=== PATIENT | male | born 1955 | race Caucasian/White ===

== ENCOUNTER → 2020-05-21 11:31 | Outpatient (CLI) | payer MEDICARE, SELFPAY ==
--- NOTE | ~2020-05-21 | CT_ITS ---
EXAMINATION: CT ankle RT wo con DATE: 05/21/2020 11:53 INDICATION: Closed pilon fracture of distal tibia. TECHNIQUE: Computed tomography (CT) of the right ankle was performed without intravenous contrast. Au tomated exposure control and iterative reconstruction technique were employed. The dose-length produc t was 200.05 mGy-cm. COMPARISON: None FINDINGS: There is a comminuted fracture of the distal tibia with extension of fracture lines to the tibial plafond. There is incongruence of the distal articular surface of the tibia with up to 2 mm ar ticular surface depression. There is internal fixation of distal tibia with 2 screws. There are osteo chondral lesions of the medial and lateral talar dome. There is moderate nonuniform joint space narro wing of the ankle joint with osteophytes. There is heterotopic ossification distal to medial and late ral malleoli. There is mild osteoarthritis of subtalar joint and many of the midfoot joints. There ar e enthesophytes at the posterior and plantar aspects of calcaneal tuberosity. IMPRESSION: 1. Comminuted fracture of distal tibia with internal fixation. 2. 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 Reviewed, dictated and finalized at location A. L PATTERNMAKER APPRENTICE
== END ==
DX: S82.874D Nondisplaced pilon fracture of right tibia, subsequent encounter for closed fracture with routine healing (principal); X58.XXXD Exposure to other specified factors, subsequent encounter; M19.071 Primary osteoarthritis, right ankle and foot
CPT/HCPCS: 73700

== ENCOUNTER → 2020-09-14 09:00 | Outpatient (CLI) | payer MEDICARE, SELFPAY ==
--- NOTE | ~2020-09-14 | CT_ITS ---
EXAMINATION: CT diagnostic chest wo con EXAM DATE: 09/14/2020 09:15 INDICATION: R91.1 - Solitary pulmonary nodule. Asthma. TECHNIQUE: Spiral CT of the chest without contrast. Axial, coronal and sagittal images of the chest were reviewed. Coronal maximum intensity pixel images of chest reviewed. The dose-length product ( DLP) for this examination was 203.03 mGy-cm. The exposure was tailored according to patient size (au to mA exposure control), and iterative reconstruction (ASIR) was used as additional dose reduction te chnique. There is no prior study for comparison. FINDINGS: There are several pulmonary nodules including left lower lobe nodule located just above th e diaphragm measuring 1.5 cm, with spiculations. There is a satellite pleural-based 8 mm nodule near this. Also small cluster of right lower lobe nodules, largest measuring 1.3 cm. These are new compare d to 2016. Multiplicity, clustered appearance suggests they could be postinfectious but a PET/CT at t his time, or a follow-up [address] is recommended. Largest nodules are abutting the diaphragm which would make percutaneous sampling challenging. There is mild emphysema. Lingular subsegmental atelectasis. There are no pleural or pericardial effus ions. Tracheobronchial tree is patent. There is no mediastinal, hilar or axillary lymphadenopathy . There is no pneumothorax. Heart normal in size. There is moderate coronary arterial calcifica tion, arterial sclerosis. Upper abdomen is unremarkable. There is thoracic spondylosis without ost eoblastic or osteolytic lesions identified. IMPRESSION: 1. Cluster of nodules in each lower lobe, largest discrete nodule just above left hemidiaphragm 1.5 cm with spiculations. Could be postinfectious but PET CT recommended. 2. Mild emphysema. Reviewed, dictated and finalized at location B. IMPRESSION: 1. Cluster of nodules in each lower lobe, largest discrete nodule just above l eft hemidiaphragm 1.5 cm with spiculations. Could be postinfectious but PET CT recommended. 2. Mild emphysema.
== END ==
PROVIDERS: PCP Physician Assistant; Visit Provider Physician Assistant
DX: R91.1 Solitary pulmonary nodule (principal); J43.9 Emphysema, unspecified; R91.8 Other nonspecific abnormal finding of lung field
CPT/HCPCS: 71250

== ENCOUNTER 2020-09-30 07:51 | Outpatient (CLI) | payer MEDICARE, SELFPAY ==
--- NOTE | ~2020-09-30 | PE_ITS ---
EXAMINATION: PET skull to mid thigh DATE: 09/30/2020 11:51 INDICATION: Solitary pulmonary nodule. TECHNIQUE: Blood glucose level was 107 mg/dL. 9.441 mCi of 18-fluorodeoxyglucose (18-FDG) was adminis tered i.v. Low dose computed tomography (CT) images were acquired from the base of the brain to the p roximal thighs for attenuation correction and anatomic localization. Positron emission tomography (PE T) images were acquired in the same distribution beginning 72 minutes after injection. Images includi ng fused PET/CT images were reconstructed in axial, coronal, and sagittal planes. Automated exposure control technique was employed. The dose-length product was 953.49mGy-cm. COMPARISON: CT dated 09/14/2020 FINDINGS: Head/neck: There is symmetric increased activity in the oral cavity, palatine tonsils, parotid glands, larynge al muscles and ocular muscles without CT correlate, likely physiologic. No pathologically enlarged ce rvical lymphadenopathy or suspicious foci of increased FDG uptake in the visualized head or neck. Chest: There is mild increased FDG uptake with maximal SUV of 3.2 associated with the 13 mm left lower lobe nodule along the posterior dome of the diaphragm. No evident FDG uptake associated with a nearby 6 mm nodule posteriorly at the left lower lobe. Minimal increased uptake with maximal SUV of 2.0 associat ed with a 1.2 cm right lower lobe nodule at the posterolateral sulcus. No evident FDG uptake associat ed with the additional smaller nodules clustered in the slightly more cephalad posterolateral right l ower lobe. No increased FDG uptake associated with a linear band of discoid atelectasis/scarring at t he lingula. No pleural effusion. Heart size is normal. No pericardial effusion. Thoracic aorta is nor mal in caliber. No pathologically enlarged thoracic lymphadenopathy. Abdomen/pelvis/proximal thighs: Physiologic renal accumulation and excretion of FDG activity in the kidneys and bladder. Photopenic d efect at the medial lower pole of the left kidney corresponding to a 3.6 cm low-attenuation renal cys t with peripheral rim calcification. Normal degree and heterogenous pattern of increased uptake throu ghout the liver without radiologic correlate or dominant FDG avid lesion. The gallbladder, pancreas, spleen and bilateral adrenal glands are normal. Mild scattered colonic diverticulosis without adjacen t inflammatory change to suggest diverticulitis. Mild uptake scattered throughout the bowels without radiologic correlate, also likely physiologic. Normal appendix. Small bilateral fat-containing inguin al hernias. No other abnormal foci of increased FDG uptake or pathologically enlarged lymphadenopathy in the abdomen, pelvis or proximal thighs. Musculoskeletal: No suspicious lytic, blastic or FDG avid bone lesions. IMPRESSION: 1. Mild FDG uptake associated with a 1.3 cm left lower lobe nodule and minimal FDG uptake is fissure with a 1.2 cm right lower lobe nodule. No uptake is fissure with a few additional smaller nodules adj acent to both of these nodules in the lower lobes which along with the relatively low FDG activity w ould favor an infectious over a malignant etiology. The location along the diaphragm of the larger no dules with discernible FDG activity in both the left and right lower lobes would render percutaneous biopsy challenging and would consider 3 month follow-up chest CT. Reviewed, dictated and finalized at location A. IMPRESSION: 1. Mild FDG uptake associated with a 1.3 cm left lower lobe nodule and minimal FDG uptake is fissure with a 1.2 cm right lower lobe nodule. No uptake is fissu re with a few additional smaller nodules adjacent to both of these nodules in the lower lobes which along with the relatively low FDG
[2020-09-30 08:15] LABS: Glucose Point of Care 107 mg/dl (65-105)
== END 2020-09-30 07:52 | disposition home or self-care (01) ==
PROVIDERS: PCP Physician Assistant; Visit Provider Physician Assistant
DX: R91.1 Solitary pulmonary nodule (principal); R91.8 Other nonspecific abnormal finding of lung field
CPT/HCPCS: 78815; A9552

== ENCOUNTER → 2021-01-10 10:29 | Outpatient (CLI) | payer MEDICARE, SELFPAY ==
--- NOTE | ~2021-01-10 | CT_ITS ---
EXAMINATION: CT chest high resolution [facility] EXAM DATE: 01/10/2021 10:43 INDICATION: R91.1 - Solitary pulmonary nodule. TECHNIQUE: Spiral CT of the chest without contrast. HRCT. Axial, coronal and sagittal images of the chest were reviewed. Coronal maximum intensity pixel images of chest reviewed. The dose-length prod uct (DLP) for this examination was 528.84 mGy-cm. The exposure was tailored according to patient siz e (auto mA exposure control), and iterative reconstruction (ASIR) was used as additional dose reducti on technique. Comparison is made to prior examination from 09/14/2020. FINDINGS: There has been interval decrease in size of the previously imaged nodules, largest in the left lower lobe still has some faint spiculations, measures about 1.0 cm versus 1.5 cm on prior study . Satellite nodules adjacent to these larger opacities also decreased in size. This favors postinfect ious etiology, but a six-month follow-up chest CT is recommended. There is some lingular scarring unc hanged. Mild to moderate emphysema and hyperinflation with narrow cardiac silhouette. No intralobular septal thickening on the HRCT. There are no pleural or pericardial effusions. Tracheobronchial rafia e is patent. There is no mediastinal, hilar or axillary lymphadenopathy. There is no pneumothorax . Heart normal in size. There is moderate coronary arterial calcification, arterial sclerosis. S everal punctate pancreatic tail calcifications. There is thoracic spondylosis without osteoblastic o r osteolytic lesions identified. IMPRESSION: 1. Decrease in size of lower lobe nodules most likely postinfectious residua; six-month follow-up est CT is recommended. 2. Mild to moderate emphysema and hyperinflation. Reviewed, dictated and finalized at location A. IMPRESSION: 1. Decrease in size of lower lobe nodules most likely postinfectious residua; six-month follow-up chest CT is recommended. 2. Mild to moderate emphysema and hyperinflation.
== END ==
PROVIDERS: PCP Physician Assistant; Visit Provider Physician Assistant
DX: R91.1 Solitary pulmonary nodule (principal); J43.9 Emphysema, unspecified; R91.8 Other nonspecific abnormal finding of lung field
CPT/HCPCS: 71250

== ENCOUNTER 2021-04-05 15:35 | Observation (INO) | payer MEDICARE, SELFPAY ==
[2021-04-05] VITALS (19 sets, daily range): BP systolic 151–192; BP diastolic 79–104; PULSE 89–102; RESP 16–28; TEMP 36.8–37.7; O2SAT 93–97; BMI 30.2
--- NOTE | ~2021-04-05 | XR_ITS ---
EXAMINATION: XR chest 1V portable DATE: 04/05/2021 16:45 INDICATION: Shortness of breath and cough. Fever. TECHNIQUE: A single frontal view of the chest was obtained. COMPARISON: Chest 2 views 09/25/2013, chest CT 01/10/2021 FINDINGS: There are patchy airspace opacities in the mid and lower lung zones. There are lucencies in the lungs, consistent with emphysema. No pleural effusion or pneumothorax. The heart size is normal. IMPRESSION: 1. Patchy airspace opacities in the mid and lower lung zones, consistent with pneumonia. 2. Emphysema. Reviewed, dictated and finalized at location A. ATIONAL THERAPIST IMPRESSION: 1. Patchy airspace opacities in the mid and lower lung zones, consistent with p neumonia. 2. Emphysema.
--- NOTE | 2021-04-05 15:51 | ECG_ITS ---
Measurements Intervals [place] Rate: 94 P: 80 CO: 162 QRS: 76 QRSD: 101 T: 71 QT: 359 QTc: 449 Interpretive Statements SINUS RHYTHM BORDERLINE ST ABNORMALITY- ANT/INF LEADS BORDERLINE ECG Electronically Signed On 04-05-2021 16:22:45 DAG SPRAYER by Maik Ortiz D.O.
[2021-04-05 16:17] LABS: Basophils Percent Auto 0.3 % (0.2-1.2); Eosinophils Percent Auto 0.1 % (0-4.4); Hematocrit 41.5 % (42.0-52.0); Immature Granulocyte Absolute 0.06 K/mm3 (0.00-0.031); Immature Granulocyte Percent A 0.5 % (0-0.5); Lymphocytes Percent Auto 7.8 % (18.3-44.2); Mean Corpuscular HGB Conc 33.7 g/dl (32-36); Mean Corpuscular Hemoglobin 30.8 pg (26-34); Mean Corpuscular Volume 91.4 fl (80-100); Mean Platelet Volume 10.9 fl (7.4-10.4); Monocytes Absolute Auto 1.5 K/mm3 (0.1-0.6); Monocytes Percent Auto 13.1 % (2.6-8.5); Neutrophils Absolute Auto 9.1 K/mm3 (1.3-6.7); Neutrophils Percent Auto 78.2 % (45.5-73.1); Platelet Count Result 231 k/mm3 (150-375); Red Blood Count 4.54 M/mm3 (4.6-6.20); Red Cell Distribution Width 12.6 % (11.5-14.5); White Blood Count 11.6 K/mm3 (4.5-10.0)
[2021-04-05 16:26] LABS: Alanine Aminotransferase 71 U/L (4-50); Albumin Level 4.2 g/dL (3.5-5.1); Alkaline Phosphatase 156 U/L (38-126); Anion Gap 8 mmol/L (8-16); Aspartate Amino Transferase 112 U/L (17-59); Bilirubin,Total 1.1 mg/dL (0.2-1.3); Blood Urea Nitrogen 10 mg/dL (9-20); Calcium 9.3 mg/dL (8.4-10.2); Carbon Dioxide 32 mmol/L (22-30); Chloride 98 mmol/L (98-107); Estimated CRCL calculation 91 ml/min; Estimated Glomerular Filt Rate > 60; Glucose 102 mg/dL (65-110); Potassium 3.6 mmol/L (3.4-5.0); Sodium 138 mmol/L (137-145)
--- NOTE | 2021-04-05 16:35 | ED.SOB ---
HPI - SOB/Dyspnea General Chief Complaint: Shortness of Breath/Dyspnea Stated Complaint: productive cough Time Seen by Provider: 04/05/21 16:35 Source: patient Mode of arrival: ambulatory Limitations: no limitations History of Present Illness HPI Narrative: Patient 65 years old white male presented to the ED with productive cough of colored sputum for the last 7 days. Last Covid vaccine November 2020. Patient denies exposure to anybody known having Covid infection. Patient doesn't smoke or drink. History of COPD. Related Data Allergies Allergy/AdvReac Type Severity Reaction Status Date / Time No Known Allergies Allergy Unknown Unverified 03/02/21 10:18 Review of Systems Review of Systems: CONSTITUTIONAL: Denies fever, chills, or sweats. EYES: Denies visual changes, redness, or discharge. ENT: Denies rhinorrhea, congestion, sore throat, or otalgia. CARDIOVASCULAR: Denies chest pain, palpitations, or edema. RESPIRATORY: Been coughing with shortness of breath on exertion GASTROINTESTINAL: Denies abdominal pain, nausea, vomiting, or diarrhea. GENITOURINARY: Denies dysuria or hematuria. SKIN: Denies rash or itching. MUSCULOSKELETAL: Denies back pain, joint pain, or myalgia. NEUROLOGIC: Denies headache, numbness, or weakness. PSYCHIATRIC: Denies anxiety or depression. PMFSH Past Medical History Medical History Hearing loss History of hemorrhoids Shortness of breath Visual loss Surgical History Surgical History History of ankle surgery Family History Family History Father , of natural causes No problems noted. Mother Cancer Sibling , Brother in car accident No problems noted. Sibling Alcohol abuse Social History Social History Smoking status: Never smoker Alcohol intake: current Substance use: never Exam Narrative: General appearance: Well-developed, well-nourished Skin: Normal color Head: Normocephalic, nontraumatic Eyes: Clear conjunctiva ENT: Oropharynx normal, ears normal, nose normal Neck: Supple, nontender Chest and respiratory: Airway patent, no respiratory distress, no accessory muscle use, diminishment of air entry bilaterally, basal rales bilaterally Heart: Regular rate/rhythm Abdomen: Soft, nontender, no organomegaly, quiet bowel sounds Vascular: Normal peripheral pulses, normal capillary refill. Musculoskeletal: Normal range of motion, nontender back Neurologic: Alert and oriented ?3, SALMON TROLL FISHER is normal as tested, no gross motor deficit Course Course Emergency Course: Stable Vital Signs Vital signs: Vital Signs Temperature 37.7 C H 04/05/21 15:47 Pulse Rate 95 04/05/21 15:47 Respiratory Rate 24 H 04/05/21 15:47 Blood Pressure 169/104 H 04/05/21 15:47 Pulse Oximetry 93 04/05/21 15:47 Temperature 37.2 C 04/05/21 18:16 Pulse Rate 90 04/05/21 18:36 Respiratory Rate 28 H 04/05/21 18:16 Blood Pressure 174/87 H 04/05/21 18:16 Pulse Oximetry 96 04/05/21 18:36 MDM - SOB/Dyspnea MDM Narrative Medical decision making narrative: Patient presents with productive cough and shortness of breath for 7 days. Differential Diagnosis Differential diagnosis: Likely acute exacerbation of chronic obstructive airways disease, congestive heart failure and community acquired pneumonia Lab Data Result diagrams: 04/05/21 16:03 04/05/21 16:03 Labs: Lab Results 04/05/21 04/05/21 04/05/21 Range/Units 1
[2021-04-05 16:56] LABS: Alveolar/Arterial O2 Gradient 42.8 mmHg; Base Excess ABG 2.9 mEq/l (+/-2.0); Device ROOM AIR; Fractional Inspired Oxygen 21 %; HCO3 ABG 25.8 mEq/l (22.0-26.0); Modified Allen's Test Pass; Oxygen Content ABG 18.3 %vol (16.0-22.0); Oxygen Saturation ABG 94.5 % (95.0-100.0); Oxyhemoglobin 93.4 % THb (90.0-100.0); PCO2 ABG 34.6 mmHg (35.0-45.0); PO2 ABG 65.5 mmHg (80.0-100.0); PO2 FiO2 Ratio Arterial Blood 3.12 %; Site Drawn RIGHT RADIAL; Total Hemoglobin 13.9 g/dL (12.0-18.0); pH ABG 7.491 (7.350-7.450)
[2021-04-05 17:37] LABS: INR 1.2; Prothrombin Time 15.4 Seconds (11.1-14.7)
[2021-04-05 17:38] LABS: Partial Thromboplastin Time 38.7 SECONDS (22.3-36.8)
[2021-04-05 17:43] LABS: CRP 7.3 mg/dL (<1.0)
[2021-04-05] MEDS: IPRATROPIUM BR 0.02% INH SOLN 0.5 MG/2.5 ML VIAL INHALATION ×2 (17:48→20:50)
[2021-04-05] MEDS: ALBUTEROL SULFATE NEB 2.5 MG/0.5 ML INH 5 MG INHALATION ×2 (17:48→20:49)
[2021-04-05 17:53] LABS: NT Pro B Type Natriuretic Pept 572 pg/mL (5-100); Troponin I < 0.012 ng/mL (0.000-0.034)
[2021-04-05] MEDS: predniSONE 20 MG TABLET 40 MG PO (17:54)
[2021-04-05 18:02] LABS: Lactic Acid Reflex 2.7 mmol/L (0.7-2.1)
[2021-04-05 18:12] LABS: Add Urine Microscopic? YES; Appearance Urine Clear (Clear); Bilirubin Urine Negative (Negative); Blood Urine Negative (Negative); Color Urine Yellow (Yellow); Glucose Urine UA Negative (Negative); Ketones Urine Trace mg/dL (Negative); Leukocyte Esterase Ur Negative LEU/UL (Negative); Mucus Urine Few /lpf; Nitrate Urine Negative (Negative); Protein Urine 1+ mg/dL (Negative); RBC Urine 0-2 /hpf (0-2); Specific Grav Ur 1.017 (1.001-1.035); WBC Urine 0-3 /hpf
[2021-04-05 18:23] LABS: SARS-CoV-2 RNA PCR Negative
--- NOTE | 2021-04-05 19:15 | PC.NURSE ---
patients catheter scheduled to be changed next week. 16fr kay catheter removed. well tolerated. 14fr coude placed under sterile technique, well tolerated. 16fr kay unable to be placed.
[2021-04-05 20:22] LABS: Reflex Lactic Acid Yes or No Add Lactic
--- NOTE | 2021-04-05 22:58 | ADMGEN ---
This patient, Matthew Kimbrough, was admitted to [facility] Surg Room 322-01. Patient/family oriented to hospital policies and general routines including ID bracelet, bed and alarms, visiting hours, pain management, procedures, bathroom and other care routines, personal items, smoking policy, room service/diet, and visiting hours. Information on how to activate the Rapid Response Team has been discussed. Patient/Family are encouraged to report perceived risks to care and to ask questions if they do not understand what they are told or what they should do.
[2021-04-05 23:50] LABS: Lactic Acid 2.5 mmol/L (0.7-2.1)
[2021-04-06] VITALS (12 sets, daily range): BP systolic 143–175; BP diastolic 75–91; PULSE 80–97; RESP 14–20; TEMP 36.7–36.9; O2SAT 93–96
[2021-04-06] MEDS: CALCIUM CARBONATE (TUMS) 500 MG (200 MG ELEMENTAL) PO (00:13)
[2021-04-06] MEDS: lisinopriL 10 MG TABLET PO ×2 (00:13→09:26)
--- NOTE | 2021-04-06 02:04 | PM.IMHP ---
H&P: HPI History of Present Illness Date/Time: 04/06/21 02:04 Chief Complaint: Cough shortness of breath Narrative: Patient 65 years old white male who presented to the ED with productive cough of yellow thick colored sputum for the last 7 days. Last Covid vaccine November 2020. Patient denies exposure to anybody known having Covid infection. He also did COVID testing at home and was negative twice. COVID testing was done again in the ER which was negative as well. He reports thick yellow sputum since past few days. His is also sick with some cough but not feeling that bad as he is. Denies any fever chills. Patient doesn't smoke or drink. History of COPD which he reports due to occupational exposure to some chemicals. He has 3 year history of smoking back when he was 9 years old. Review of Systems Review of Systems: CONSTITUTIONAL: Denies fever, chills, or sweats. EYES: Denies visual changes, redness, or discharge. ENT: Denies rhinorrhea, congestion, sore throat, or otalgia. CARDIOVASCULAR: Denies chest pain, palpitations, or edema. RESPIRATORY: Reports coughing with shortness of breath on exertion GASTROINTESTINAL: Denies abdominal pain, nausea, vomiting, or diarrhea. GENITOURINARY: Denies dysuria or hematuria. SKIN: Denies rash or itching. MUSCULOSKELETAL: Denies back pain, joint pain, or myalgia. NEUROLOGIC: Denies headache, numbness, or weakness. PSYCHIATRIC: Denies anxiety or depression. [facility] Past Medical History Medical History Hearing loss History of hemorrhoids Shortness of breath Visual loss Surgical History Surgical History History of ankle surgery Family History Family History Father , of natural causes No problems noted. Mother Cancer Sibling , Brother in car accident No problems noted. Sibling Alcohol abuse Social History Social History Smoking status: Former smoker Tobacco type: cigarettes Alcohol intake: never Substance use: never Spiritual care concerns: No Meds Home Medications and Allergies Home Medications Medication Instructions Recorded Confirmed Type albuterol sulfate 90 mcg/actuation 2 puff INHALATION Q4-6H PRN #25.5 g 05/10/20 04/05/21 Rx aerosol inhaler budesonide-formoterol HFA 160 2 puff INHALATION Q12H #30.6 g 05/10/20 04/05/21 Rx mcg-4.5 mcg/actuation aerosol inhaler lisinopril 10 mg tablet 10 mg PO DAILY #90 tablet 01/21/21 04/05/21 Rx montelukast 10 mg tablet 10 mg PO DAILY #90 tablet 01/21/21 04/05/21 Rx ipratropium 0.5 mg-albuterol 3 mg 3 ml INHALATION Q4-6H PRN #810 ml 03/09/21 04/05/21 Rx (2.5 mg base)/3 mL nebulization soln Allergies Allergy/AdvReac Type Severity Reaction Status Date / Time No Known Allergies Allergy Unknown Unverified 03/02/21 10:18 Vital Signs Vital Signs - 24 hr 04/05/21 15:47 04/05/21 16:34 04/05/21 16:37 Temperature 99.8 F H Pulse Rate 95 94 96 Respiratory Rate 24 H 23 H 23 H Blood Pressure 169/104 H 183/89 H Pulse Oximetry 93 95 95 04/05/21 16:45 04/05/21 16:46 04/05/21 17:00 Temperature Pulse Rate 89 91 100 Respiratory Rate 19 18 25 H Blood Pressure 168/93 H Pulse Oximetry 96 93 97 04/05/21 17:01 04/05/21 17:15 04/05/21 17:16 Temperature Pulse Rate 97 95 92 Respiratory Rate 25 H 22 H 16 Blood Pressure 183/102 H 192/85 H Pulse Oximetry 95 04/05/21 17:30 04/05/21 17:31 04/05/21 17:47 Temperature Pulse Rate 93 93 94 Respiratory Rate 16 20 23 H Blood Pressure 176/92 H 188/98 H Pulse Oximetry 95 04/05/21 17:49 04/05/21 18:00 04/05/21 18:16 Temperature 98.9 F Pulse Rate 95 94 100 Respiratory Rate 21 H 26 H 28 H Blood Pressure 174/87 H Pulse Oximetry 97 93 04/05/21 18:
[2021-04-06] MEDS: SODIUM CHLORIDE 0.9% IV 1,000 ML 75 ML IV CONT (03:07)
[2021-04-06] MEDS: IPRATROPIUM BR 0.02% INH SOLN 0.5 MG/2.5 ML VIAL INHALATION ×4 (03:10→21:27)
[2021-04-06] MEDS: ALBUTEROL SULFATE NEB 2.5 MG/0.5 ML INH 5 MG INHALATION ×4 (03:10→21:27)
[2021-04-06] MEDS: ENOXAPARIN 40 MG/0.4 ML SYRINGE SUB-Q (09:25)
[2021-04-06] MEDS: methylPREDNISolone SOD SUCC 40 MG VIAL IV PUSH ×2 (09:25→17:44)
[2021-04-06] MEDS: MONTELUKAST SODIUM 10 MG TABLET PO (09:25)
[2021-04-06] MEDS: FLUTICASONE/SALMETEROL 115-21 MCG INHALER 1 PUFF 2 PUFF INHALATION ×2 (09:27→21:27)
--- NOTE | 2021-04-06 10:01 | PCCCNOTE ---
On 04/06/21, the student, [Shivani Price], provided care and completed [facility] on [facility]. I have reviewed the student's documentation and agree with the findings.
[2021-04-06 10:25] LABS: Basophils Percent Auto 0.3 % (0.2-1.2); Hematocrit 38.3 % (42.0-52.0); Hemoglobin 13.1 g/dL (14.0-18.0); Immature Granulocyte Absolute 0.16 K/mm3 (0.00-0.031); Immature Granulocyte Percent A 1.5 % (0-0.5); Lymphocytes Absolute Auto 1.94 K/mm3 (0.9-3.2); Lymphocytes Percent Auto 18.6 % (18.3-44.2); Mean Corpuscular HGB Conc 34.2 g/dl (32-36); Mean Corpuscular Hemoglobin 30.6 pg (26-34); Mean Corpuscular Volume 89.5 fl (80-100); Mean Platelet Volume 11.4 fl (7.4-10.4); Monocytes Absolute Auto 1.5 K/mm3 (0.1-0.6); Neutrophils Absolute Auto 6.9 K/mm3 (1.3-6.7); Neutrophils Percent Auto 65.6 % (45.5-73.1); Platelet Count Result 227 k/mm3 (150-375); Red Blood Count 4.28 M/mm3 (4.6-6.20); Red Cell Distribution Width 12.6 % (11.5-14.5); White Blood Count 10.4 K/mm3 (4.5-10.0)
[2021-04-06 10:49] LABS: Alanine Aminotransferase 61 U/L (4-50); Albumin Level 3.5 g/dL (3.5-5.1); Alkaline Phosphatase 124 U/L (38-126); Aspartate Amino Transferase 77 U/L (17-59); Bilirubin,Total 0.7 mg/dL (0.2-1.3)
--- NOTE | 2021-04-06 11:37 | P.PNIM_ITS ---
Progress Note: A&P Assessment and Plan (1) Acute exacerbation of chronic obstructive pulmonary disease: Code(s): J44.1 - Chronic obstructive pulmonary disease with (acute) exacerbation Status: Acute Assessment and Plan: Presented with diffuse wheezing and dyspnea * Continue IV Solu-Medrol 40 mg b.i.d. * Continue albuterol and ipratropium nebs q6h * Advair inhaler * Supportive care. Cornet valve and incentive spirometry (2) Pneumonia: Qualifiers: Laterality: unspecified laterality Lung location: unspecified part of lung Pneumonia type: due to unspecified organism Qualified Code(s): J18.9 - Pneumonia, unspecified organism Code(s): J18.9 - Pneumonia, unspecified organism Status: Acute Assessment and Plan: CXR showed patchy airspace opacities in the mid and lower lung zones consistent with pneumonia * COVID-19 negative * Influenza pending * Legionella pneumococcal urinary antigens pending * Continue IV Levaquin * Sputum culture and blood cultures pending * Supportive care * Mild leukocytosis is improving * Maintaining adequate oxygen saturations on room air. No supplemental O2 requirement (3) Elevated liver enzymes: Code(s): R74.8 - Abnormal levels of other serum enzymes Status: Acute Assessment and Plan: Trending down * May be related to acute infection * Will check hepatitis panel * Consider right upper quadrant ultrasound if no further improvement * Continue to monitor LFTs (4) Cough: Code(s): R05.9 - Cough, unspecified Status: Acute Assessment and Plan: Secondary to COPD exacerbation and pneumonia as above (5) Hypertension: Qualifiers: Hypertension type: primary hypertension Qualified Code(s): I10 - Essential (primary) hypertension Code(s): I10 - Essential (primary) hypertension Status: Acute Assessment and Plan: Blood pressure reviewed and has been elevated above target in the 180 systolic. * Seems to be improving. Last BP 154/75 * Continue home lisinopril * Will discontinue IV fluids. Patient is tolerating oral intake * P.r.n. hydralazine * Monitor blood pressure trends and adjust medication regimen as needed. (6) Lactic acidosis: Code(s): E87.2 - Acidosis Status: Acute Assessment and Plan: Lactic acid elevated up to 2.7 on presentation * Improved with hydration * May be related to acute infection * Blood cultures pending * Lactic has normalized Subjective Date/time seen: 04/06/21 11:37 Interval history: Date of service: 04/06/2021 Matthew Kimbrough is a 65-year-old male with a history of COPD, hearing loss, hype rtension, hyperlipidemia who is seen in follow-up for COPD exacerbation. He feels a lot better today. He had been feeling poorly at home for about 2 weeks and is already having significant improvement. He does endorse productive cough with yellow sputum. His shortness of breath is improving he feels he is able to take deeper breaths. He denies any wheezing. Has not been out of bed yet today and unable to indicate RUIZ. He denies orthopnea. He does endorse abdominal soreness secondary to coughing. Denies fever or chills. His appetite is good. Reports he has been drinking plenty of water. Denies nausea or vomiting. No urinary symptoms. Review of Systems Review of Systems: All systems reviewed & are unremarkable except as noted in HPI and below Exam Narrative: Mr. Kimbrough is a well-nourish
--- NOTE | 2021-04-06 11:37 | PM.IMPN ---
Progress Note: A&P Assessment and Plan (1) Acute exacerbation of chronic obstructive pulmonary disease: Code(s): J44.1 - Chronic obstructive pulmonary disease with (acute) exacerbation Status: Acute Assessment and Plan: Presented with diffuse wheezing and dyspnea Continue IV Solu-Medrol 40 mg b.i.d. Continue albuterol and ipratropium nebs q6h Advair inhaler Supportive care. Cornet valve and incentive spirometry (2) Pneumonia: Qualifiers: Laterality: unspecified laterality Lung location: unspecified part of lung Pneumonia type: due to unspecified organism Qualified Code(s): J18.9 - Pneumonia, unspecified organism Code(s): J18.9 - Pneumonia, unspecified organism Status: Acute Assessment and Plan: CXR showed patchy airspace opacities in the mid and lower lung zones consistent with pneumonia COVID-19 negative Influenza pending Legionella pneumococcal urinary antigens pending Continue IV Levaquin Sputum culture and blood cultures pending Supportive care Mild leukocytosis is improving Maintaining adequate oxygen saturations on room air. No supplemental O2 requirement (3) Elevated liver enzymes: Code(s): R74.8 - Abnormal levels of other serum enzymes Status: Acute Assessment and Plan: Trending down May be related to acute infection Will check hepatitis panel Consider right upper quadrant ultrasound if no further improvement Continue to monitor LFTs (4) Cough: Code(s): R05.9 - Cough, unspecified Status: Acute Assessment and Plan: Secondary to COPD exacerbation and pneumonia as above (5) Hypertension: Qualifiers: Hypertension type: primary hypertension Qualified Code(s): I10 - Essential (primary) hypertension Code(s): I10 - Essential (primary) hypertension Status: Acute Assessment and Plan: Blood pressure reviewed and has been elevated above target in the 180 systolic. Seems to be improving. Last BP 154/75 Continue home lisinopril Will discontinue IV fluids. Patient is tolerating oral intake P.r.n. hydralazine Monitor blood pressure trends and adjust medication regimen as needed. (6) Lactic acidosis: Code(s): E87.2 - Acidosis Status: Acute Assessment and Plan: Lactic acid elevated up to 2.7 on presentation Improved with hydration May be related to acute infection Blood cultures pending Lactic has normalized Subjective Date/time seen: 04/06/21 11:37 Interval history: Date of service: 04/06/2021 Matthew Kimbrough is a 65-year-old male with a history of COPD, hearing loss, hypertension, hyperlipidemia who is seen in follow-up for COPD exacerbation. He feels a lot better today. He had been feeling poorly at home for about 2 weeks and is already having significant improvement. He does endorse productive cough with yellow sputum. His shortness of breath is improving he feels he is able to take deeper breaths. He denies any wheezing. Has not been out of bed yet today and unable to indicate RUIZ. He denies orthopnea. He does endorse abdominal soreness secondary to coughing. Denies fever or chills. His appetite is good. Reports he has been drinking plenty of water. Denies nausea or vomiting. No urinary symptoms. Review of Systems Review of Systems: All systems reviewed & are unremarkable except as noted in HPI and below Exam Narrative: Mr. Kimbrough is a well-nourished, well-appearing 65-year-old male who is lying semi recumbent in bed. He appears comfortable and is in NARD. Neuro: awake, alert and oriented x4, speech clear, no focal neuro deficits noted HEENMT: normocephalic, atraumatic, EOMI, sclerae anicteric Neck: supple, no lymphadenopathy Respiratory: Diminished breath sounds bilaterally without wheezes, nonlabored breathing, able to speak in complete sentences, barking cough with yellow sputum production Cardio: regular
[2021-04-06] MEDS: guaiFENesin 12 HR 600 MG TABCR PO ×2 (14:03→20:49)
[2021-04-06 15:02] LABS: Lactic Acid Reflex 2.5 mmol/L (0.7-2.1)
[2021-04-06 17:48] LABS: Reflex Lactic Acid Yes or No Add Lactic
[2021-04-06 18:43] LABS: Lactic Acid 3.2 mmol/L (0.7-2.1)
[2021-04-06] MEDS: hydrALAZINE HCL 20 MG/ML VIAL 10 MG IV PUSH (21:19)
[2021-04-07] VITALS (8 sets, daily range): BP systolic 154–164; BP diastolic 78–88; PULSE 82–96; RESP 16–20; TEMP 36.8–37.1; O2SAT 94–97
[2021-04-07] MEDS: ALBUTEROL SULFATE NEB 2.5 MG/0.5 ML INH 5 MG INHALATION ×3 (02:00→15:23)
[2021-04-07] MEDS: IPRATROPIUM BR 0.02% INH SOLN 0.5 MG/2.5 ML VIAL INHALATION ×3 (02:00→15:24)
[2021-04-07] MEDS: FLUTICASONE/SALMETEROL 115-21 MCG INHALER 1 PUFF 2 PUFF INHALATION (08:41)
[2021-04-07] MEDS: ENOXAPARIN 40 MG/0.4 ML SYRINGE SUB-Q (09:20)
[2021-04-07] MEDS: methylPREDNISolone SOD SUCC 40 MG VIAL IV PUSH (09:20)
[2021-04-07] MEDS: MONTELUKAST SODIUM 10 MG TABLET PO (09:21)
[2021-04-07] MEDS: lisinopriL 10 MG TABLET PO (09:21)
[2021-04-07] MEDS: guaiFENesin 12 HR 600 MG TABCR PO (09:21)
[2021-04-07 11:16] LABS: Hematocrit 39.5 % (42.0-52.0); Hemoglobin 12.9 g/dL (14.0-18.0); Mean Corpuscular HGB Conc 32.7 g/dl (32-36); Mean Corpuscular Hemoglobin 30.8 pg (26-34); Mean Corpuscular Volume 94.3 fl (80-100); Mean Platelet Volume 10.8 fl (7.4-10.4); Platelet Count Result 281 k/mm3 (150-375); Red Blood Count 4.19 M/mm3 (4.6-6.20); Red Cell Distribution Width 13.1 % (11.5-14.5); White Blood Count 13.3 K/mm3 (4.5-10.0)
[2021-04-07 11:28] LABS: Lactic Acid Reflex 3.8 mmol/L (0.7-2.1)
[2021-04-07 11:31] LABS: Alanine Aminotransferase 79 U/L (4-50); Albumin Level 3.8 g/dL (3.5-5.1); Alkaline Phosphatase 120 U/L (38-126); Anion Gap 10 mmol/L (8-16); Aspartate Amino Transferase 102 U/L (17-59); Bilirubin,Total 0.7 mg/dL (0.2-1.3); Blood Urea Nitrogen 17 mg/dL (9-20); CRP 8.2 mg/dL (<1.0); Calcium 9.2 mg/dL (8.4-10.2); Carbon Dioxide 29 mmol/L (22-30); Chloride 100 mmol/L (98-107); Estimated CRCL calculation 81 ml/min; Estimated Glomerular Filt Rate > 60; Glucose 112 mg/dL (65-110); Potassium 3.7 mmol/L (3.4-5.0); Sodium 139 mmol/L (137-145)
--- NOTE | 2021-04-07 13:46 | P.PNIM_ITS ---
Progress Note: A&P Assessment and Plan (1) Acute exacerbation of chronic obstructive pulmonary disease: Code(s): J44.1 - Chronic obstructive pulmonary disease with (acute) exacerbation Status: Acute Assessment and Plan: Presented with diffuse wheezing and dyspnea * Continue IV Solu-Medrol 40 mg b.i.d. Transition to PO Prednisone tomorrow morning * Continue albuterol and ipratropium nebs q6h * Advair inhaler * Supportive care. Cornet valve and incentive spirometry (2) Pneumonia: Qualifiers: Laterality: unspecified laterality Lung location: unspecified part of lung Pneumonia type: due to unspecified organism Qualified Code(s): J18.9 - Pneumonia, unspecified organism Code(s): J18.9 - Pneumonia, unspecified organism Status: Acute Assessment and Plan: CXR showed patchy airspace opacities in the mid and lower lung zones consistent with pneumonia * COVID-19 negative * Influenza pending * Legionella pneumococcal urinary antigens pending * Continue IV Levaquin * Sputum culture and blood cultures pending * Supportive care * Mild leukocytosis is improving * Maintaining adequate oxygen saturations on room air. No supplemental O2 requirement (3) Elevated liver enzymes: Code(s): R74.8 - Abnormal levels of other serum enzymes Status: Acute Assessment and Plan: Trending down * May be related to acute infection * Will check hepatitis panel * Consider right upper quadrant ultrasound if no further improvement * Continue to monitor LFTs (4) Cough: Code(s): R05.9 - Cough, unspecified Status: Acute Assessment and Plan: Secondary to COPD exacerbation and pneumonia as above (5) Hypertension: Qualifiers: Hypertension type: primary hypertension Qualified Code(s): I10 - Essential (primary) hypertension Code(s): I10 - Essential (primary) hypertension Status: Acute Assessment and Plan: Blood pressure reviewed and has been elevated above target in the 180 systolic. * Seems to be improving. Last BP 154/75 * Continue home lisinopril * Will discontinue IV fluids. Patient is tolerating oral intake * P.r.n. hydralazine * Monitor blood pressure trends and adjust medication regimen as needed. (6) Lactic acidosis: Code(s): E87.2 - Acidosis Status: Acute Assessment and Plan: Lactic acid elevated up to 2.7 on presentation * Improved with hydration * May be related to acute infection * Blood cultures pending * Lactic has normalized Subjective Date/time seen: 04/07/21 13:46 Interval history: Date of service: 04/07/2021 Matthew Kimbrough is a 65-year-old male with a history of COPD, hearing loss, hypertension, hyperlipidemia who is seen in follow-up for COPD exacerbation. Feeling improved today. Continues to endorse SOB though notes overall improvement. Denies RUIZ. He continues to have hacking cough productive of yellowish sputum. He has had some improvement with the Cornet valve. He has been able to get up and walk to the restroom without difficulty and without significant worsening of his symptoms. He denies fever or chills. No N/V, diarrhea, dizziness, lightheadedness. Eating well. Review of Systems Review of Systems: All systems reviewed & are unremarkable except as noted in HPI and below Exam Narrative: Mr. Kimbrough is a well-nourished, well-appearing 65-year-old male who is lying semi recumbent in bed. He appears comfortable and is in NARD
--- NOTE | 2021-04-07 13:46 | PM.IMPN ---
Progress Note: A&P Assessment and Plan (1) Acute exacerbation of chronic obstructive pulmonary disease: Code(s): J44.1 - Chronic obstructive pulmonary disease with (acute) exacerbation Status: Acute Assessment and Plan: Presented with diffuse wheezing and dyspnea Continue IV Solu-Medrol 40 mg b.i.d. Transition to PO Prednisone tomorrow morning Continue albuterol and ipratropium nebs q6h Advair inhaler Supportive care. Cornet valve and incentive spirometry (2) Pneumonia: Qualifiers: Laterality: unspecified laterality Lung location: unspecified part of lung Pneumonia type: due to unspecified organism Qualified Code(s): J18.9 - Pneumonia, unspecified organism Code(s): J18.9 - Pneumonia, unspecified organism Status: Acute Assessment and Plan: CXR showed patchy airspace opacities in the mid and lower lung zones consistent with pneumonia COVID-19 negative Influenza pending Legionella pneumococcal urinary antigens pending Continue IV Levaquin Sputum culture and blood cultures pending Supportive care Mild leukocytosis is improving Maintaining adequate oxygen saturations on room air. No supplemental O2 requirement (3) Elevated liver enzymes: Code(s): R74.8 - Abnormal levels of other serum enzymes Status: Acute Assessment and Plan: Trending down May be related to acute infection Will check hepatitis panel Consider right upper quadrant ultrasound if no further improvement Continue to monitor LFTs (4) Cough: Code(s): R05.9 - Cough, unspecified Status: Acute Assessment and Plan: Secondary to COPD exacerbation and pneumonia as above (5) Hypertension: Qualifiers: Hypertension type: primary hypertension Qualified Code(s): I10 - Essential (primary) hypertension Code(s): I10 - Essential (primary) hypertension Status: Acute Assessment and Plan: Blood pressure reviewed and has been elevated above target in the 180 systolic. Seems to be improving. Last BP 154/75 Continue home lisinopril Will discontinue IV fluids. Patient is tolerating oral intake P.r.n. hydralazine Monitor blood pressure trends and adjust medication regimen as needed. (6) Lactic acidosis: Code(s): E87.2 - Acidosis Status: Acute Assessment and Plan: Lactic acid elevated up to 2.7 on presentation Improved with hydration May be related to acute infection Blood cultures pending Lactic has normalized Subjective Date/time seen: 04/07/21 13:46 Interval history: Date of service: 04/07/2021 Matthew Kimbrough is a 65-year-old male with a history of COPD, hearing loss, hypertension, hyperlipidemia who is seen in follow-up for COPD exacerbation. Feeling improved today. Continues to endorse SOB though notes overall improvement. Denies RUIZ. He continues to have hacking cough productive of yellowish sputum. He has had some improvement with the Cornet valve. He has been able to get up and walk to the restroom without difficulty and without significant worsening of his symptoms. He denies fever or chills. No N/V, diarrhea, dizziness, lightheadedness. Eating well. Review of Systems Review of Systems: All systems reviewed & are unremarkable except as noted in HPI and below Exam Narrative: Mr. Kimbrough is a well-nourished, well-appearing 65-year-old male who is lying semi recumbent in bed. He appears comfortable and is in NARD. Neuro: awake, alert and oriented x4, speech clear, no focal neuro deficits noted HEENMT: normocephalic, atraumatic, EOMI, sclerae anicteric Neck: supple, no lymphadenopathy Respiratory: Clear to auscultation bilaterally, nonlabored breathing, able to speak in complete sentences, persistent barking cough Cardio: regular rate, regular rhythm with S1-S2 Abdomen: nondistended, normoactive bowel sounds, soft, nontender to palpation Extremities: No edema, erythema or ten
[2021-04-07 14:11] LABS: Reflex Lactic Acid Yes or No Add Lactic
[2021-04-07 14:48] LABS: Lactic Acid 2.6 mmol/L (0.7-2.1)
--- NOTE | 2021-04-07 15:25 | PM.DS ---
DS: Admitting Diagnosis Discharge Date 04/07/2021 Admitting Diagnosis COPD exacerbation DS: Discharge Diagnosis Discharge Diagnosis (1) Acute exacerbation of chronic obstructive pulmonary disease: Code(s): J44.1 - Chronic obstructive pulmonary disease with (acute) exacerbation Status: Acute Assessment and Plan: Presented with diffuse wheezing and dyspnea Treated with IV Solu-Medrol 40 mg b.i.d. with symptomatic improvement Will continue p.o. prednisone 50 mg daily for 5 days Continue albuterol-ipratropium nebs q6h Advair inhaler Supportive care provided. Continue Cornet valve and incentive spirometry (2) Pneumonia: Qualifiers: Laterality: unspecified laterality Lung location: unspecified part of lung Pneumonia type: due to unspecified organism Qualified Code(s): J18.9 - Pneumonia, unspecified organism Code(s): J18.9 - Pneumonia, unspecified organism Status: Acute Assessment and Plan: CXR showed patchy airspace opacities in the mid and lower lung zones consistent with pneumonia COVID-19 negative Legionella, mycoplasma, and pneumococcal urinary antigens pending; final results will be monitored Treated with IV Levaquin which he will continue for 7 days of antibiotic therapy Preliminary blood in sputum cultures negative. Final results will be monitored Supportive care Patient remained afebrile. Presented with mild leukocytosis the did improve but subsequently increased related to IV steroid use Maintained adequate oxygen saturations on room air. No supplemental O2 requirement (3) Elevated liver enzymes: Code(s): R74.8 - Abnormal levels of other serum enzymes Status: Acute Assessment and Plan: LFTs mildly elevated May be related to acute infection Follow-up with PCP in 1 week and consider repeat lab work (4) Cough: Code(s): R05.9 - Cough, unspecified Status: Acute Assessment and Plan: Secondary to COPD exacerbation and pneumonia as above (5) Hypertension: Qualifiers: Hypertension type: primary hypertension Qualified Code(s): I10 - Essential (primary) hypertension Code(s): I10 - Essential (primary) hypertension Status: Acute Assessment and Plan: Blood pressure reviewed and was initially elevated above target but did improve with resuming home antihypertensives. Continue home lisinopril (6) Lactic acidosis: Code(s): E87.2 - Acidosis Status: Acute Assessment and Plan: Lactic acid was elevated Suspect this was related to beta agonist use with albuterol No signs/symptoms to suggest sepsis as etiology Levels improved DS: Summary Hospital Course Hospital Course: Date of admission: 04/05/2021 Date of discharge: 04/07/2021 Matthew Kimbrough is a 65-year-old male with a history of COPD, hearing loss, hypertension, hyperlipidemia who presented to the emergency department on 04/05/2021 with complaints of shortness of breath, productive cough ongoing for 7 days. On presentation to the ED, his blood pressure was elevated, he was mildly tachypneic, additional vital signs stable, CXR showed patchy airspace opacities the mid lower lung zones consistent with pneumonia. He was admitted to the hospitalist service for further evaluation and management. Please see above for further details. He had symptomatic improvement with IV steroids antibiotics. His shortness of breath improved and he was feeling back to his usual state of health. He will continue a course of p.o. steroids antibiotics on discharge. Discussed with the patient worrisome signs and symptoms for which to return and he was educated on his medications. He was discharged in hemodynamically stable condition on 04/07/2021. Status at Discharge Functional status at discharge: independent ambulation Overall status at discharge: patient is back to baseline Time Spent with Patient Time attestation: Total
[2021-04-09 20:57] LABS: Mycoplasma IgM Antibody Titer 78 U/mL (<770)
[2021-04-09 22:13] LABS: Pneumococcal Antigen Urine Not Detected (Not Detected)
[2021-04-10 00:29] LABS: Legionella pneumophila Ag Ur Not Detected (Not Detected)
== END 2021-04-07 17:30 | disposition home or self-care (01) ==
LOC: ANHED 19:03 → ANH3MEDSUR 20:43
PROVIDERS: Emergency Medicine; Admitting Provider Internal Medicine; Emergency Provider Emergency Medicine; PCP Physician Assistant; Visit Provider Physician Assistant
DX: J44.1 Chronic obstructive pulmonary disease with (acute) exacerbation (principal); J18.9 Pneumonia, unspecified organism; J44.0 Chronic obstructive pulmonary disease with (acute) lower respiratory infection; J44.9 Chronic obstructive pulmonary disease, unspecified; R74.8 Abnormal levels of other serum enzymes; I10 Essential (primary) hypertension; E78.5 Hyperlipidemia, unspecified; E87.2 Acidosis; Z20.822 Contact with and (suspected) exposure to COVID-19; Z87.891 Personal history of nicotine dependence
CPT/HCPCS: 36415; 36600; 71045; 80053; 80076; 81001; 82805; 83605; 83880; 84484; 85025; 85027; 85610; 85730; 86140; 86738; 87040; 87070; 87205; 87449; 87899; 93005; 94640; 94667; 96365; 96366; 96372; 96375; 96376; 99285; A9270; C9803; G0378; J0360; J1650; J1956; J2920; J7030; J7512; U0003; U0005

== ENCOUNTER 2021-06-16 15:40 | Outpatient (CLI) | payer MEDICARE, SELFPAY ==
[2021-06-16 16:06] LABS: Basophils Percent Auto 0.7 % (0.2-1.2); Eosinophils Absolute Auto 0.1 K/mm3 (0-0.3); Eosinophils Percent Auto 1.2 % (0-4.4); Immature Granulocyte Absolute 0.02 K/mm3 (0.00-0.031); Immature Granulocyte Percent A 0.3 % (0-0.5); Lymphocytes Absolute Auto 1.21 K/mm3 (0.9-3.2); Lymphocytes Percent Auto 20.8 % (18.3-44.2); Mean Corpuscular HGB Conc 31.8 g/dl (32-36); Mean Corpuscular Hemoglobin 29.7 pg (26-34); Mean Corpuscular Volume 93.4 fl (80-100); Mean Platelet Volume 11.3 fl (7.4-10.4); Monocytes Absolute Auto 0.7 K/mm3 (0.1-0.6); Monocytes Percent Auto 11.7 % (2.6-8.5); Neutrophils Absolute Auto 3.8 K/mm3 (1.3-6.7); Neutrophils Percent Auto 65.3 % (45.5-73.1); Platelet Count Result 152 k/mm3 (150-375); Red Blood Count 4.71 M/mm3 (4.6-6.20); Red Cell Distribution Width 13.9 % (11.5-14.5); White Blood Count 5.8 K/mm3 (4.5-10.0)
== END 2021-06-16 15:41 | disposition home or self-care (01) ==
LOC: ANHLAB 15:43
PROVIDERS: Visit Provider Internal Medicine Pulmonary Disease
DX: J44.9 Chronic obstructive pulmonary disease, unspecified (principal)
CPT/HCPCS: 36415; 82104; 85025

== ENCOUNTER 2021-07-06 16:33 | Outpatient (CLI) | payer MEDICARE, SELFPAY ==
[2021-07-11 08:12] LABS: Alpha-1-Antitrypsin, QN 35 mg/dL (83-199)
== END 2021-07-06 16:34 | disposition home or self-care (01) ==
LOC: ANHLAB 16:37
PROVIDERS: Visit Provider Internal Medicine Pulmonary Disease
DX: E88.01 Alpha-1-antitrypsin deficiency (principal)
CPT/HCPCS: 36415; 82103

== ENCOUNTER 2021-07-12 07:54 | Outpatient (CLI) | payer MEDICARE, SELFPAY ==
--- NOTE | ~2021-07-12 | CT_ITS ---
EXAMINATION: CT diagnostic chest wo con DATE: 07/12/2021 09:55 INDICATION: Chronic obstructive pulmonary disease TECHNIQUE: Computed tomography (CT) of the chest was performed without intravenous contrast. The dose -length product (DLP) was 225.32 mGy-cm. Automated exposure control and iterative reconstruction tech [employer] were employed. COMPARISON: 01/10/2021 FINDINGS: There is moderate emphysema. A nodule previously seen abutting the left hemidiaphragm is no t definitely identified. Additional small nodules scattered throughout the lungs are stable. No new p ulmonary nodules are identified. There is no pleural effusion or pneumothorax. There is scarring in t he lingula. There are minimal airspace opacities of the right lower lobe. No pleural effusion or pneu mothorax is identified. No pathologically enlarged thoracic lymph nodes are identified. The heart siz e is normal. Calcified coronary artery atherosclerosis is noted. There is mild thoracic spondylosis. IMPRESSION: 1. Resolved left lower lobe nodule and multiple additional stable pulmonary nodules, likely old granu lomatous disease. Consider annual low-dose lung cancer screening CT if the patient is eligible. Reviewed, dictated and finalized at location A. IMPRESSION: 1. Resolved left lower lobe nodule and multiple additional stable pulmonary nod ules, likely old granulomatous disease. Consider annual low-dose lung cancer sc reening CT if the patient is eligible.
[2021-07-12 09:00] VITALS: PULSE 66; O2SAT 96
[2021-07-12 09:05] VITALS: PULSE 96; O2SAT 90
[2021-07-12 09:15] VITALS: PULSE 70; O2SAT 96
--- NOTE | 2021-07-12 10:11 | HOMEO2EVAL ---
Evaluation was performed at [facility] Home Oxygen Evaluation RC: Home Oxygen (O2) Evaluation Start: 07/12/21 10:09 Freq: Status: Active Protocol: RPE Activity Type Activity Date Activity User E-Sign Co-Sign Detail Recorded Client Recorded Date Recorded By Document 07/12/21 09:00 [email or web address] [email or web address] 07/12/21 10:11 KELLY Document 07/12/21 09:05 [email or web address] [email or web address] 07/12/21 10:11 KELLY Document 07/12/21 09:15 KELLY [email or web address] 07/12/21 10:11 KELLY 07/12/21 07/12/21 07/12/21 09:00 09:05 09:15 Home O2 Evaluation Test Phase Resting Exercise Resting Oxygen Delivery Room Air Room Air Room Air Pulse Oximetry (90-100 %) 96 90 96 Pulse Rate (60-100 beats/min) 66 96 70 Activity Tolerance Excellent Rating of Perceived Dyspnea (PD) +2 Mild, Some Difficulty, Noticeable to the Observer Ambulation Distance (feet) 1,000 Ambulation Distance (meters) 304.78 Home Oxygen Evaluation Comments No home o2 needed at this time. Treatment Charges O2 Evaluation - Outpatient
--- NOTE | 2021-07-12 12:24 | WPDPFTINT ---
PFT Procedure Performed PFT Procedure Performed Spirometry with Pre/Post Bronchodilator Plethysmography (Lung Vol) Diffusing Cap (DLCO) Flow Vol Loop PFT Interpretation This is a pulmonary function test with pre and post-bronchodilator spirometry, plethysmography and diffusing capacity. The test was performed and results interpreted in accordance with the 2019 and 2005 ATS/ERS Task Force guidelines respectively using the Global Lung Function Initiative-2012 reference equations. Patient demonstrated good effort and cooperation. Reproducibility criteria were met. The quality of the pre bronchodilator spirometry maneuver was Grade A and post bronchodilator spirometry maneuver was Grade A. Findings: Spirometry: there is decreased maximal expiratory airflow at all lung volumes with a concave expiratory flow tracing. The contour the inspiratory flow tracing is normal. The pre bronchodilator FVC is 3.33 L, 77% predicted. The pre bronchodilator FEV1 is 0.99 L, 30% predicted. The pre bronchodilator FEV1: FVC ratio is 30%. The post bronchodilator FVC is 3.73 L, representing a 12% increase. The post bronchodilator FEV1 is 1.24 L, representing a 25% increase. The post bronchodilator FEV1: FVC ratio is 33%. Plethysmography: The total lung capacity is 9.01 L, 128% predicted. Functional residual capacity is 6.55 L, 176% predicted. The residual volume is 5.57 L, 231% predicted. Diffusing capacity: The diffusing capacity unadjusted for hemoglobin and carboxyhemoglobin is 16.2, 61% predicted. The diffusing capacity adjusted for alveolar volume is 3.51, 88 % predicted. Impression: There is a very severe obstructive abnormality with significant improvement after inhaling a single dose of albuterol. The increase in residual volume is consistent with air trapping from an obstructive abnormality. Hyperinflation is present is demonstrated by the increase in functional residual capacity and total lung capacity and is consistent with an obstructive abnormality. The diffusing capacity unadjusted for hemoglobin and carboxyhemoglobin is mildly decreased and normalizes when adjusted for alveolar volume. There are no prior studies for comparison
== END 2021-07-12 07:55 | disposition home or self-care (01) ==
PROVIDERS: Visit Provider Internal Medicine Pulmonary Disease
DX: J44.9 Chronic obstructive pulmonary disease, unspecified (principal); R94.2 Abnormal results of pulmonary function studies
CPT/HCPCS: 71250; 94060; 94618; 94726; 94729

== ENCOUNTER 2021-08-22 10:12 | Outpatient (CLI) | payer MEDICARE, SELFPAY ==
[2021-08-22 10:43] LABS: INR 1.1; Prothrombin Time 13.6 Seconds (11.1-14.7)
[2021-08-22 11:08] LABS: Alanine Aminotransferase 28 U/L (6-50); Albumin Level 4.4 g/dL (3.5-5.1); Alkaline Phosphatase 49 U/L (38-126); Anion Gap 5 mmol/L (8-16); Aspartate Amino Transferase 39 U/L (17-59); Bilirubin,Total 0.6 mg/dL (0.2-1.3); Blood Urea Nitrogen 17 mg/dL (9-20); Calcium 9.2 mg/dL (8.4-10.2); Carbon Dioxide 30 mmol/L (22-30); Chloride 103 mmol/L (98-107); Estimated Glomerular Filt Rate > 60; Glucose 110 mg/dL (65-110); Potassium 4.5 mmol/L (3.4-5.0); Sodium 138 mmol/L (137-145)
[2021-08-24 22:48] LABS: Immunoglobulin A 337 mg/dL (70-320); Immunoglobulin G 1272 mg/dL (600-1540); Immunoglobulin M 38 mg/dL (50-300)
== END 2021-08-22 10:13 | disposition home or self-care (01) ==
LOC: ANHLAB 10:12
PROVIDERS: PCP Physician Assistant; Visit Provider Internal Medicine Pulmonary Disease
DX: E88.01 Alpha-1-antitrypsin deficiency (principal); R06.02 Shortness of breath
CPT/HCPCS: 36415; 80053; 82784; 85610

== ENCOUNTER 2022-07-27 12:23 | Outpatient (CLI) | payer MEDICARE, SELFPAY ==
--- NOTE | 2022-07-28 09:47 | WPDPFTINT ---
PFT Procedure Performed PFT Procedure Performed Spirometry with Pre/Post Bronchodilator Plethysmography (Lung Vol) Diffusing Cap (DLCO) Flow Vol Loop PFT Interpretation Lung volumes were measured with the body plethysmography method. The elevated FRC and RV are indicative of air trapping. The elevated TLC is indicative of lung hyperinflation. Spirometry showed diminished expiratory flow rates and a diminished FEV1 to FVC ratio 34%, indicative of obstructive airway disease. Following administration of a bronchodilator there was no significant increase in expiratory flow rates. Lung diffusion capacity is mildly reduced at 69% predicted. The flow-volume loop is consistent with emphysema. In comparison to previous study in July of 2021, post bronchodilator FVC, and FEV1 have been essentially unchanged. Total lung capacity and indices of air trapping as well as lung diffusion capacity also unchanged. Impression: Severe obstructive airway disease with evidence of air trapping, lung hyperinflation and no response to bronchodilators on this testing. Mild reduction in lung diffusion capacity. Unchanged since last study.
== END 2022-07-27 12:24 | disposition home or self-care (01) ==
PROVIDERS: PCP Physician Assistant; Visit Provider Internal Medicine Pulmonary Disease
DX: E88.01 Alpha-1-antitrypsin deficiency (principal)
CPT/HCPCS: 94060; 94726; 94729

== ENCOUNTER 2023-01-10 14:14 | Outpatient (CLI) | payer MEDICARE, SELFPAY ==
--- NOTE | ~2023-01-10 | CT_ITS ---
EXAMINATION: CT diagnostic chest wo con DATE: 01/10/2023 14:33 INDICATION: R91.1 - Solitary pulmonary nodule TECHNIQUE: Computed tomography (CT) of the chest was performed without intravenous contrast. Addition al 3D reconstructions utilizing coronal maximum intensity projection (MIP) were performed. Automated exposure control and iterative reconstruction technique were employed. The dose-length product was 27 8.10 mGy-cm. COMPARISON: 07/12/2021 FINDINGS: Moderate emphysema with lower lung predominance. Significant improvement in prior tree-in-bud opaciti es and bronchial mucus plugging in the basilar segments of the bilateral lower lobes with decrease in number and no change to slight decrease in size of the remaining associated pulmonary nodules. For r eference the largest remaining nodules in the right lower lobe has decreased from 7 x 5 mm to current ly measuring 6 x 4 mm. Unchanged 1.3 x 0.8 cm nodular region on a linear band of atelectasis with ass ociated architectural distortion at the anteroinferior most left lower lobe, potentially round atelec tasis. No other new or enlarging pulmonary nodules identified. Additional unchanged linear band of di scoid atelectasis/scarring in the lingula. No pulmonary edema or pleural effusion. Heart size is norm al. Atherosclerotic coronary artery calcification. Thoracic aorta is normal in caliber. No pathologic ally enlarged thoracic lymphadenopathy. Partially visualized rim calcified cyst at the left kidney ve rsus portion which is unchanged since CT dated 01/19/2014. Mild thoracic spondylosis. IMPRESSION: 1. Interval improvement in tree-in-bud opacities with decreased number of small pulmonary nodules at the bilateral basilar lower lobes with no change to slight decrease in size of the remaining nodules. Recommend additional 1 year follow-up low-dose noncontrast chest CT. 2. Moderate emphysema. Reviewed, dictated and finalized at location A. IMPRESSION: 1. Interval improvement in tree-in-bud opacities with decreased number of small pulmonary nodules at the bilateral basilar lower lobes with no change to sligh t decrease in size of the remaining nodules. Recommend additional 1 year follow -up low-dose noncontrast chest CT. 2. Moderate emphysema.
== END 2023-01-10 14:15 | disposition home or self-care (01) ==
PROVIDERS: PCP Internal Medicine; Visit Provider Internal Medicine Pulmonary Disease
DX: R91.1 Solitary pulmonary nodule (principal); J43.9 Emphysema, unspecified
CPT/HCPCS: 71250

== ENCOUNTER 2023-06-20 13:40 | Outpatient (CLI) | payer MEDICARE, SELFPAY ==
--- NOTE | 2023-06-25 13:00 | WPDPFTINT ---
PFT Procedure Performed PFT Procedure Performed Spirometry with Pre/Post Bronchodilator Plethysmography (Lung Vol) Flow Vol Loop PFT Interpretation DOS: 06/20/2023 REQUESTING: Brant Fletcher MD REASON FOR TESTING: shortness of breath PULMONARY FUNCTION TESTS Results are reliable and reproducible. Repeatability of spirometry FEV1 maneuver pre and post bronchodilator is Grade A. Spirometry: The pre-bronchodilator FEV1 is 1.17 L, 36%, severely decreased. The pre-bronchodilator FVC is 3.85 L, 90%, normal. The FEV1/FVC ratio is 30% consistent with severe obstruction. After bronchodilator, the FEV1 is 1.21 L, 38%, 4% increase. The FVC is 3.79 L, 89%, 2% decrease. The post bronchodilator FEV1/FVC ratio is 32%. Lung volumes: The total lung capacity is 8.0 L, 114%, normal. The residual volume is 4.15 L, 169%, increased. The RV/TLC is 52%, increased. Airway resistance is increased. Diffusion: DLCO is 15.9, 60%, decreased. The DLCO/VA is 3.53, 90%, normal. Flow volume loop: The flow volume loop shows severe count coving of the expiratory limb consistent with airflow obstruction. IMPRESSION: Severe obstructive ventilatory impairment without response to bronchodilator, air trapping, mild diffusion impairment that corrects for alveolar volume. Lack of response to bronchodilator should not preclude use if clinically indicated. Compared to prior study 07/27/2022 values are similar. Spirometry is the same, prior total lung capacity was 9.11 L which was elevated, currently the TLC is 8 L which is within the normal range, no longer hyperinflated. Air trapping was previously worse, RV was 5.68 L now 4.15 L, lower, less air trapping. DLCO is similar, was 69% now 60%. Racquel Mackay MD
== END 2023-06-20 13:41 | disposition home or self-care (01) ==
LOC: ANHIMG 13:40
PROVIDERS: PCP Internal Medicine; Visit Provider Internal Medicine Pulmonary Disease
DX: E88.01 Alpha-1-antitrypsin deficiency (principal)
CPT/HCPCS: 94060; 94726; 94729

== ENCOUNTER 2023-08-15 12:18 | Outpatient (CLI) | payer MEDICARE, SELFPAY ==
--- NOTE | ~2023-08-15 | CT_ITS ---
CT Scan of the Chest without Contrast: Clinical Indication: Alpha-1 antitrypsin Technique: Contiguous sections were acquired throughout the chest without intravenous contrast. Dose reduction technique was used on this scan by utilizing automated exposure control and iterative recon struction technique. The dose-length product (DLP) was 218.13 mGy-cm. COMPARISON: 01/10/2023 Findings: There is no evidence of any significant mediastinal, hilar or axillary lymphadenopathy. Coronary lisa ry calcifications are present. There is no evidence of pleural or pericardial effusion. Moderate to advanced emphysema present. There is stable bibasilar circumscribed pulmonary nodules. Th ere is interstitial prominence or scarring at the lung bases, similar to prior exam. Images through the upper abdomen reveal stable probable left renal cyst with eccentric/peripheral latricia cification. Impression: Moderate emphysema. Stable circumscribed bibasilar pulmonary nodules. Mild chronic interstitial change or scarring/post inflammatory change at the lung bases, similar to p rior exam. Reviewed, dictated and finalized at location . Impression: Moderate emphysema. Stable circumscribed bibasilar pulmonary nodules. Mild chronic interstitial change or scarring/post inflammatory change at the austen ng bases, similar to prior exam.
[2023-08-15 12:55] VITALS: PULSE 72; O2SAT 96
[2023-08-15 13:05] VITALS: PULSE 115; O2SAT 87
[2023-08-15 13:10] VITALS: PULSE 90; O2SAT 91
[2023-08-15 13:25] VITALS: PULSE 80; O2SAT 97
--- NOTE | 2023-08-15 13:37 | HOMEO2EVAL ---
Evaluation was performed at [facility] Home Oxygen Evaluation RC: Home Oxygen (O2) Evaluation Start: 08/15/23 13:34 Freq: Status: Active Protocol: RPE Activity Type Activity Date Activity User E-sign Co-sign Detail Recorded Client Recorded Date Recorded By Document 08/15/23 12:55 PK [email or web address] 08/15/23 13:37 PK Document 08/15/23 13:05 PK [email or web address] 08/15/23 13:37 [facility] Document 08/15/23 13:10 [facility] [email or web address] 08/15/23 13:37 [facility] Document 08/15/23 13:25 [facility] [email or web address] 08/15/23 13:37 [facility] 08/15/23 08/15/23 08/15/23 12:55 13:05 13:10 Home O2 Evaluation [Oxygen] -Test Phase Resting Exercise Exercise -Oxygen Delivery Room Air Nasal Cannula -Oxygen Flow Rate (L/min) 1 [Pulse Oximetry] -Pulse Oximetry (90-100 %) 96 87 L 91 [Pulse Rate] -Pulse Rate (60-100 beats/min) 72 115 H 90 [Evaluation] -Activity Tolerance Good [Charges] -Evaluation Charges O2 Evaluation by Pulmonary 08/15/23 13:25 Home O2 Evaluation [Oxygen] -Test Phase Resting -Oxygen Delivery Room Air -Oxygen Flow Rate (L/min) [Pulse Oximetry] -Pulse Oximetry (90-100 %) 97 [Pulse Rate] -Pulse Rate (60-100 beats/min) 80 [Evaluation] -Activity Tolerance [Charges] -Evaluation Charges
--- NOTE | 2023-08-15 13:39 | HOMEO2EVAL ---
Evaluation was performed at [facility] Home Oxygen Evaluation RC: Home Oxygen (O2) Evaluation Start: 08/15/23 13:34 Freq: Status: Active Protocol: RPE Activity Type Activity Date Activity User E-sign Co-sign Detail Recorded Client Recorded Date Recorded By Document 08/15/23 12:55 PK [email or web address] 08/15/23 13:37 PK Document 08/15/23 13:05 PK [email or web address] 08/15/23 13:37 [facility] Document 08/15/23 13:10 [facility] [email or web address] 08/15/23 13:37 [facility] Document 08/15/23 13:25 [facility] [email or web address] 08/15/23 13:37 [facility] 08/15/23 08/15/23 08/15/23 12:55 13:05 13:10 Home O2 Evaluation [Oxygen] -Test Phase Resting Exercise Exercise -Oxygen Delivery Room Air Room Air Nasal Cannula -Oxygen Flow Rate (L/min) 1 [Pulse Oximetry] -Pulse Oximetry (90-100 %) 96 87 L 91 [Pulse Rate] -Pulse Rate (60-100 beats/min) 72 115 H 90 [Evaluation] -Activity Tolerance Good [Charges] -Evaluation Charges O2 Evaluation by Pulmonary 08/15/23 13:25 Home O2 Evaluation [Oxygen] -Test Phase Resting -Oxygen Delivery Room Air -Oxygen Flow Rate (L/min) [Pulse Oximetry] -Pulse Oximetry (90-100 %) 97 [Pulse Rate] -Pulse Rate (60-100 beats/min) 80 [Evaluation] -Activity Tolerance [Charges] -Evaluation Charges
== END 2023-08-15 12:19 | disposition home or self-care (01) ==
PROVIDERS: PCP Internal Medicine; Visit Provider Internal Medicine Pulmonary Disease
DX: E88.01 Alpha-1-antitrypsin deficiency (principal); J43.9 Emphysema, unspecified; R91.8 Other nonspecific abnormal finding of lung field
CPT/HCPCS: 71250; 94618

== ENCOUNTER 2024-07-03 10:34 | Outpatient (CLI) | payer MEDICARE, SELFPAY ==
--- NOTE | ~2024-07-03 | CT_ITS ---
CT Scan of the Chest without Contrast: Clinical Indication: Alpha-1 antitrypsin deficiency Technique: Contiguous sections were acquired throughout the chest without intravenous contrast. Dose reduction technique was used on this scan by utilizing automated exposure control and iterative recon struction technique. The dose-length product (DLP) was 572.73 mGy-cm. COMPARISON: 08/15/2023 Findings: There is no evidence of any significant mediastinal, hilar or axillary lymphadenopathy. Coronary lisa ry calcifications are present. There is no evidence of pleural or pericardial effusion. There is moderate to advanced emphysema, with basilar prominence. Stable 5 mm left basilar pulmonary nodule (axial image 101). Stable mild interstitial opacities of the lung bases. Stable additional 4 m m right lower lobe nodule (axial image 96). Chronic scarring or atelectasis noted the lingula, unchan ged. Images through the upper abdomen reveal no abnormalities. Impression: Stable moderate to advanced emphysema with basilar predominance. Stable pulmonary nodules. Stable scarring or atelectasis at the lingula. Reviewed, dictated and finalized at location . Impression: Stable moderate to advanced emphysema with basilar predominance. Stable pulmonary nodules. Stable scarring or atelectasis at the lingula.
--- OUTSIDE RECORDS SUMMARY | 2024-07-03 11:56 | XMS_ITS | Clinical Summary ---
Author Organization [facility] Address [address] [place] [id number] Care Team Providers Care Leadership Development Consultant Name Role Phone Unavailable Primary Care Provider Unavailabl e Social History Tobacco Use Types Packs/Day Years Used Date Smoking Tobacco: Never Assessed Sex and Gender Information Value Date Recorded Sex Assigned at Not on file Legal Sex Male 8:23 PM CDT Gender Identity Not on file Sexual Orientation Not on file Plan of Treatment Health Maintenance Due Date Last Done Comments Colorectal Cancer Screening Colonoscopy (10 Years) 1955 Hepatitis C 06/05/1971 DTaP, Tdap and Td Vaccines ( 1 - Tdap) 1972 Pneumococcal Vaccine: 50+ Ye ars (1 of 1 - PCV) 06/05/2003 Zoster Vaccines (1 of 2) 06/05/2003 COVID-19 Vaccine ( - 2023-2 5 season) 2023 RSV Immunization or 60+ Years (1 - 1-dose 75+ series) 2028 Meningococcal B Vaccine Aged Out No l onger eligible based on patient's age to complete this topic Meningococcal Vaccine Aged Out No asha frandy eligible based on patient's age to complete this topic RSV Immunizations Under 20 Months Aged Out No longer eligible based on patient's age to complete this topic
== END 2024-07-03 10:35 | disposition home or self-care (01) ==
PROVIDERS: PCP Internal Medicine; Visit Provider Internal Medicine Pulmonary Disease
DX: E88.01 Alpha-1-antitrypsin deficiency (principal); R91.8 Other nonspecific abnormal finding of lung field; J43.9 Emphysema, unspecified
CPT/HCPCS: 71250

== ENCOUNTER 2024-07-09 10:36 | Outpatient (CLI) | payer MEDICARE, SELFPAY ==
--- OUTSIDE RECORDS SUMMARY | 2024-07-09 11:55 | XMS_ITS | Clinical Summary ---
Author Organization [facility] Address [address] [place] [id number] Care Team Providers Care Pre Sales Technical Engineer Name Role Phone Unavailable Primary Care Provider [...]
--- NOTE | 2024-07-09 15:59 | WPDPFTINT ---
PFT Procedure Performed PFT Procedure Performed Spirometry with Pre/Post Bronchodilator Plethysmography (Lung Vol) Diffusing Cap (DLCO) Flow Vol Loop PFT Interpretation This is a pulmonary function test with pre and post-bronchodilator spirometry, plethysmography and diffusing capacity.? The test was performed and results interpreted in accordance with the 2019 and 2005 ATS/ERS Task Force guidelines respectively using the Global Lung Function Initiative-2012 reference equations. Patient demonstrated good effort and cooperation. Reproducibility criteria were met. The quality of the pre bronchodilator spirometry maneuver was Grade A and post bronchodilator spirometry maneuver was Grade A. Findings: Spirometry:? There is decreased maximal expiratory airflow at all lung volumes with concave expiratory flow tracing.? The contour the inspiratory flow tracing is normal.? The pre bronchodilator FVC is 3.49 L, 83% predicted.? The pre bronchodilator FEV1 is 1.15 L, 36% predicted.? The pre bronchodilator FEV1: FVC ratio is 33%.? The post bronchodilator FVC is 3.29 L, representing a 6% decrease.? The post bronchodilator FEV1 is 1.14 L, representing no change.? The post bronchodilator FEV1: FVC ratio is 35%.? Plethysmography:? The total lung capacity is 8.27 L, 117% predicted.? The functional residual capacity is 5.78 L, 154% predicted.? The residual volume is 4.42 L, 179% predicted.? The residual volume: Total lung capacity ratio is 53%. Diffusing capacity:? The diffusing capacity unadjusted for hemoglobin and carboxyhemoglobin is 16.4, 63% predicted. ?The diffusing capacity adjusted for alveolar volume is 3.68, 94% predicted.? In comparison to prior pulmonary function testing on 06/20/2023, the post bronchodilator FVC is unchanged from 3.79 L to 3.29 L.? The post bronchodilator FEV1 is unchanged from 1.21 L to 1.14 L.? The total lung capacity is unchanged from 8.00 L to 8.27 L.? The functional residual capacity is unchanged from 5.28 L to 5.78 L.? The residual volume is unchanged from 4.15 L to 4.42 L. the residual volume:? Total lung capacity ratio is unchanged from 52% to 53% The diffusing capacity unadjusted for hemoglobin and carboxyhemoglobin is unchanged from 15.7 to 16.4.? The diffusing capacity adjusted for alveolar volume is unchanged from 3.53 to 3.68 Impression: There is a severe obstructive abnormality. There is no significant improvement after inhaling a single dose of albuterol.? The increase in residual volume to total lung volume ratio is consistent with hyperinflation from an obstructive abnormality.? The diffusing capacity unadjusted for hemoglobin and carboxyhemoglobin is mildly decreased and normalizes when adjusted for alveolar volume. In comparison to previous pulmonary function testing on 06/20/2023 there has been no significant change in the FVC, FEV1, total lung capacity, functional residual capacity, residual volume or diffusing capacity.
== END 2024-07-09 10:37 | disposition home or self-care (01) ==
PROVIDERS: PCP Internal Medicine; Visit Provider Internal Medicine Pulmonary Disease
DX: E88.01 Alpha-1-antitrypsin deficiency (principal); R91.1 Solitary pulmonary nodule; R94.2 Abnormal results of pulmonary function studies
CPT/HCPCS: 94060; 94726; 94729